=== PATIENT | female | born 1995 | race Hispanic/Latino ===

== ENCOUNTER 2017-05-25 09:24 | Inpatient (IN) | payer OTHER, SELFPAY ==
[2017-05-25] MEDS ORDERED: Ondansetron HCl/PF 4 MG/2 ML Vial ONE (10:21)
[2017-05-25] MEDS ORDERED: Pantoprazole 40 MG VIAL ONE (10:21)
[2017-05-25 10:54] LABS: #Basophils 0.1 thou/uL (0.0-0.2); #Lymphocytes 1.3 thou/uL (1.20-3.40); #Monocytes 0.4 thou/uL (0.11-0.59); #Neutrophils 13.3 thou/uL (1.40-6.50); %Basophils 0.3 % (0.0-1.0); %Eosinophils 0.2 % (0.0-10.0); %Lymphocytes 8.7 % (21.0-51.0); %Monocytes 2.5 % (0.0-10.0); %Neutrophils 88.3 % (42.0-75.0); Hemoglobin 12.5 g/dL (12.0-16.0); Mean Corpuscular HGB CONC 31.8 g/dL (32.0-36.0); Mean Corpuscular Volume 72.2 fl (81.0-99.0); Mean Platelet Volume 9.5 fL (7.4-10.4); Platelet Count 407 thou/uL (130-400); RBC Distribution Width 13.8 % (11.5-14.5); Red Blood Cell (RBC) Count 5.45 mill/uL (4.20-5.40)
[2017-05-25 11:01] LABS: ALT (SGPT) 205 U/L (8-55); AST (SGOT) 236 U/L (5-34); Albumin 4.4 g/dL (3.5-5.0); Alkaline Phosphatase 243 U/L (40-150); Anion Gap 14 mmol/L (10-20); BUN (Urea Nitrogen) 6 mg/dL (7.0-18.7); Bilirubin, Total 1.3 mg/dL (0.2-1.2); Calc. Creatinine Clearance 0 mL/min (70-130); Calcium 9.2 mg/dL (7.8-10.44); Carbon Dioxide 22 mmol/L (22-29); Chloride 103 mmol/L (98-107); Estimated GFR-MDRD Greater than 90; Glucose 133 mg/dL (70-105); Lipase Greater than 1000 U/L (8-78); Potassium 4.4 mmol/L (3.5-5.1); Protein, Total 8.4 g/dL (6.0-8.3); Sodium 135 mmol/L (136-145)
[2017-05-25 11:10] LABS: Hypochromia SLIGHT = 6-15 cells (100X) (0-5/hpf); MDiff Complete? YES; Microcytosis SLIGHT = 6-15 cells (100X) (0-5/hpf); Ovalocytes SLIGHT = 2-5 cells (100X) (0-1/hpf); PLT Morphology Comment Appears Increased; Polychromasia SLIGHT = 2-3 cells (100X) (0-2/hpf); Tear Drops SLIGHT = 2-5 cells (100X) (0-1/hpf)
[2017-05-25] MEDS ORDERED: Metoclopramide HCl 10 MG/2 ML VIAL ONE (11:14)
--- NOTE | 2017-05-25 11:19 | RAD ---
CHEST 1 VIEW ABDOMEN 2 VIEWS: HISTORY: Constipation. Abdominal pain. FINDINGS: Cardiac silhouette and pulmonary vasculature are unremarkable. Mediastinum is midline. There is no lobar consolidation or evidence of free subdiaphragmatic gas. Gas and stool are apparent throughout the colon and rectum. There are no differential air fluid leve ls or evidence of free subdiaphragmatic gas. Only a moderate amount of stool is apparent. IMPRESSION: No significant abnormalities are demonstrated. POS: H
[2017-05-25] MEDS ORDERED: Promethazine HCl 25 MG/ML VIAL ONE (12:36)
--- NOTE | 2017-05-25 12:51 | ULT ---
SONOGRAM RIGHT UPPER QUADRANT: Date: 05/25/17 HISTORY: Right upper quadrant pain. FINDINGS: Multiple small, shadowing stones are present within the gallbladder lumen. Gallbladder is distended u p to 11.3 cm. Patient was reportedly not tender over the gallbladder fossa at the time of the exam. N o gallbladder wall thickening or pericholecystic fluid. Liver has a normal appearance. IMPRESSION: Cholelithiasis. Gallbladder is abnormally distended, although no other findings of acute cholecystiti s are apparent. Clinical correlation regarding other clinical signs and symptoms of acute cholecystit is is required. POS: MADHURI
[2017-05-25] MEDS ORDERED: Ondansetron HCl/PF 4 MG/2 ML Vial IVP PRN ×2 (15:35→15:38)
[2017-05-25] MEDS ORDERED: Ondansetron ODT 4 MG TAB SL PRN (15:35)
[2017-05-25 15:36] VITALS: BMI 40.3
[2017-05-25] MEDS ORDERED: Morphine 4 MG/ML Carpuject SLOW IVP PRN (15:38)
[2017-05-25] MEDS ORDERED: Sodium Chloride 0.9% 1,000 ML IV SCH ×3 (15:45→19:45)
[2017-05-25] MEDS ORDERED: Dextrose 5 %-0.45 % NaCl 1,000 ML IV SCH (15:45)
[2017-05-25] MEDS ORDERED: Morphine 5 mg/5 ml in 0.9% NaCl/PF SYRINGE SLOW IVP PRN (16:03)
[2017-05-25] MEDS ORDERED: Morphine 5 mg/5 ml in 0.9% NaCl/PF SYRINGE IVP PRN (16:03)
[2017-05-25] MEDS ORDERED: FLU VACC QS2017-18 36 mo. & older 0.5 ML SYRINGE IM ONE (18:00)
--- NOTE | 2017-05-25 19:28 | HP ---
CHIEF COMPLAINT: Gallstone pancreatitis. HISTORY OF PRESENT ILLNESS: Ms. Albright is a 21-year-old woman who is 2 months . She deve loped constipation 3 days ago, which has been an issue for her off and on in the past. Yesterday, seb valdes developed abdominal pain, which radiates across her upper abdomen into her back. She had severe na usea and this morning began throwing up, so came into the emergency room. She rates her pain as 7/10 and states that it is constant since its onset yesterday. It is somewhat relieved by a heating pad and nothing else she has taken for it has helped. She denies any hematemesis or coffee ground emesis . She had a small bowel movement yesterday, which was otherwise normal. PAST MEDICAL HISTORY: None. PAST SURGICAL HISTORY: Tonsillectomy. FAMILY HISTORY: Diabetes in her mother. SOCIAL HISTORY: She does not smoke, drink or use illicit drugs. She has a 2-month-old child who is bottle fed. REVIEW OF SYSTEMS: Ten-system review of systems is negative except per HPI. She has not had any fev ers or chills. PHYSICAL EXAMINATION: VITAL SIGNS: Temperature 98.6, heart rate 86, respirations 18, blood pressure 142/91 and 99% saturat ed on room air. GENERAL: Reveals a pleasant young woman in no acute distress. She is somewhat groggy after receivin g Phenergan. She is not flushed or toxic in appearance. She is not jaundiced or icteric. HEENT: Unremarkable. NECK: Supple, without lymphadenopathy or thyroid nodules. HEART: Regular in its rate and rhythm without murmurs, rubs or gallops. LUNGS: Clear to auscultation bilaterally. ABDOMEN: Tender in the epigastric area and both upper quadrants. Mildly tender in the lower abdomen . No rigidity, rebound or guarding. No palpable masses or hernias. EXTREMITIES: Warm and well perfused without edema. NEUROLOGIC: No focal deficits. PSYCHIATRIC: Groggy, but cooperative and responsive. IMAGING DATA: Ultrasound of the abdomen showed gallstones without pericholecystic fluid or wall thic kening. Her bile duct was just over 6 mm in diameter. LABORATORY DATA: Lipase is greater than 1000. Bilirubin is mildly elevated at 1.3. AST and ALT are 236 and 205. Electrolytes are normal. White count is mildly elevated at 15, platelets are 407 and hematocrit is 39.4. ASSESSMENT: Gallstone pancreatitis. PLAN: We will admit the patient for hydration, pain control and bowel rest. If her symptoms improve and her labs normalize, then we will plan on laparoscopic cholecystectomy with intraoperative cholan giogram to evaluate for retained stones. If her pancreatitis worsens or her LFTs did not decline, th en ERCP will be considered. I have alerted Dr. Mcintyre of Gastroenterology to her admission and asked him to see her for possible ERCP if needed. I did discuss the procedure of laparoscopic cholecystec césar with cholangiogram with the patient and her mother inherent risks include, but are not limited t o bleeding, infection, risks of anesthesia, damage to nearby structures including bowel, liver and bi le duct, need for open operation and need for other surgeries. The patient and her mother understand and wished to proceed. They understand that preoperative ERCP may be necessary depending on the cli nical course. All of their questions were answered.
[2017-05-25] MEDS ORDERED: Morphine 5 MG/ML SYRINGE IVP PRN (20:15)
[2017-05-25] MEDS: Morphine 5 MG/ML SYRINGE SLOW IVP PRN (20:41)
[2017-05-25] MEDS: Sodium Chloride 0.9% 1,000 ML IV SCH (20:45)
--- NOTE | 2017-05-26 03:51 | CON ---
DATE OF CONSULTATION: 05/25/2017 HISTORY OF PRESENT ILLNESS: Ms. Albright is a pleasant 21-year-old female who was admitted to [facility] with biliary pancreatitis. She in retrospect, noticed she has had several bouts over the past year , right upper quadrant pain after eating certain meals. For 3 days now, she has been having some abd ominal pain. She states this pain actually started at her back initially and she would stay on her l eft side, she feels better, but she still kept having pain. She thought maybe this is related to her menstrual cycles coming on. Once her menstrual cycles started, usually she will have a bowel moveme nt and her stomach will feel better, but this time it did not. She began to have some nausea and vom iting, and the pain initially got better, but then got worse today and she came to the emergency room . Here, she was found to have elevated liver enzymes and lipase over 1000. She has had no fever or chills. She feels a little bit better now, but actually in the past hour or so, she started having s ome upper abdominal pain a little bit again, nothing like that when she came in. She has had no feve r or chills. She has only voided once since being here. She feels like her mouth is very dry. On reviewing records, she is getting 150 mL an hour. She received 1 liter of fluid in the emergency room. She came in at 9 this morning. She denies any past history of pancreatitis. She denies any a lcohol abuse. She denies any medications. PAST MEDICAL HISTORY: None. PAST SURGICAL HISTORY: Tonsillectomy. SOCIAL HISTORY: She denies alcohol, drugs or tobacco. She does not smoke. She has two children. ALLERGIES: None known. MEDICATIONS: Morphine p.r.n., D5 half normal at 75 mL an hour, Zofran p.r.n., Protonix 40 mg daily. PHYSICAL EXAMINATION: VITAL SIGNS: Temperature is 98.5, pulse 87, blood pressure 127/73. HEENT: Mucous members are dry. LUNGS: Clear. CARDIOVASCULAR: Heart has a regular rate and rhythm, without clicks or murmurs. ABDOMEN: Soft. There is no rebound or guarding. There is mild tenderness to deep palpation. EXTREMITIES: No clubbing, cyanosis or edema. LABORATORY DATA: On admission, white count 15,000, hemoglobin 12.5, platelet count 407, 88% neutroph ils. Chemistry: Sodium 135, potassium 4.4, BUN 6, creatinine 0.7, glucose 133, bilirubin 1.3, AST a nd ALT are 236 and 205, alkaline phosphatase 243. Lipase is greater than 1000. IMAGING STUDIES: Ultrasound showed cholelithiasis with gallbladder distention. No other symptoms of acute cholecystitis were seen. ASSESSMENT: Biliary pancreatitis. There could be some early cholecystitis, but there are no signs o f cholangitis. RECOMMENDATIONS: She has been empirically started on some Levaquin in case she has early cholangitis with elevated white count and when I increased fluid to 250 mL an hour as she is mildly dry, at this point in time, she has only received about a liter and a half, so far today and she is only voided o nce. Agree with repeating labs in the morning. Depending on her course, she may be ready for cholec ystectomy tomorrow or she may need to wait another day or two. If liver enzymes are not improving, s he may need an ERCP. I prefer her to do this once her pancreatitis has resolved; however, if she has worsening pancreatitis or signs of cholangitis, we have to proceed with that emergently.
[2017-05-26 05:53] LABS: #Lymphocytes 2.3 thou/uL (1.20-3.40); #Monocytes 0.7 thou/uL (0.11-0.59); #Neutrophils 12.5 thou/uL (1.40-6.50); %Basophils 0.1 % (0.0-1.0); %Eosinophils 0.3 % (0.0-10.0); %Lymphocytes 14.8 % (21.0-51.0); %Monocytes 4.6 % (0.0-10.0); %Neutrophils 80.3 % (42.0-75.0); Hemoglobin 10.9 g/dL (12.0-16.0); Mean Corpuscular HGB CONC 32.6 g/dL (32.0-36.0); Mean Corpuscular Hemoglobin 23.2 pg (27.0-31.0); Mean Corpuscular Volume 71.3 fl (81.0-99.0); Mean Platelet Volume 8.1 fL (7.4-10.4); Platelet Count 331 thou/uL (130-400); RBC Distribution Width 13.3 % (11.5-14.5); Red Blood Cell (RBC) Count 4.68 mill/uL (4.20-5.40); White Blood Cell (WBC) Count 15.5 thou/uL (4.8-10.8)
[2017-05-26] MEDS: Sodium Chloride 0.9% 1,000 ML IV SCH ×4 (05:53→16:53)
[2017-05-26 06:22] LABS: ALT (SGPT) 113 U/L (8-55); AST (SGOT) 61 U/L (5-34); Albumin 3.6 g/dL (3.5-5.0); Alkaline Phosphatase 177 U/L (40-150); Anion Gap 9 mmol/L (10-20); BUN (Urea Nitrogen) 4 mg/dL (7.0-18.7); Bilirubin, Total 0.7 mg/dL (0.2-1.2); Calc. Creatinine Clearance 226 mL/min (70-130); Calcium 8.2 mg/dL (7.8-10.44); Carbon Dioxide 23 mmol/L (22-29); Chloride 108 mmol/L (98-107); Estimated GFR-MDRD Greater than 90; Globulin 2.7 g/dL (2.4-3.5); Glucose 92 mg/dL (70-105); Lipase 302 U/L (8-78); Potassium 3.1 mmol/L (3.5-5.1); Protein, Total 6.3 g/dL (6.0-8.3); Sodium 137 mmol/L (136-145)
[2017-05-26] MEDS ORDERED: Ondansetron HCl/PF 4 MG/2 ML Vial ONE (07:14)
[2017-05-26] MEDS ORDERED: Glycopyrrolate 0.2 MG/ML 5 ML SYRINGE ONE (07:14)
[2017-05-26] MEDS ORDERED: Lidocaine 1% PF 5 ML VIAL ONE (07:14)
[2017-05-26] MEDS ORDERED: Ketorolac Tromethamine 30 MG/ML VIAL ONE (07:14)
[2017-05-26] MEDS ORDERED: Propofol 200 MG/20 ML VIAL ONE (07:14)
[2017-05-26] MEDS ORDERED: PHENYLEPHRINE-NS 100 MCG/ML 10 ML SYRINGE ONE (07:14)
[2017-05-26] MEDS ORDERED: Dexamethasone 20 MG/5 ML VIAL ONE (07:14)
[2017-05-26] MEDS ORDERED: Potassium Chloride 40 MEQ in Premix Bag 1 BAG IVPB SCH (08:30)
[2017-05-26] MEDS: Pantoprazole 40 MG VIAL IVP SCH (09:17)
[2017-05-26] MEDS: Morphine 5 MG/ML SYRINGE SLOW IVP PRN (09:17)
[2017-05-26] MEDS ORDERED: CEFAZOLIN/Water 2 GM/20 ML SYRINGE SLOW IVP SCH (10:15)
--- NOTE | 2017-05-26 15:44 | PRG ---
DATE OF SERVICE: 05/26/2017 SUBJECTIVE: Ms. Albright feels much better this morning. She has no pain. OBJECTIVE: VITAL SIGNS: Temperature is 97.8, pulse 80, blood pressure 122/79. ABDOMEN: Soft and nontender. LABORATORY STUDIES: White count is still 15,000, hemoglobin 10.9, MCV is 71, platelet count is 330. Sodium 137, potassium 3.1, BUN and creatinine are 4 and 0.61, bilirubin is now 0.7, AST and ALT have come down to 61 and 113 with alkaline phosphatase 177 and lipase is 302. ASSESSMENT: 1. Gallstone pancreatitis, resolving. The patient feels much better. This is a mild course. 2. Cholelithiasis with abnormal LFTs, which are improving. She likely had choledocholithiasis as a cause for pancreatitis. At this time with dropping LFTs, I agree with General Surgery. PLAN: To take her to the OR to remove her gallbladder. IOC should be performed at that time. If th ere is any evidence of common duct stones that cannot be flushed out, I will be available for ERCP at the same time of the same procedure. The patient is aware of these issues, and if she needs an ERCP , we will go straight from the OR to ERCP. We discussed the risks, benefits, possible complications of the procedure last night, we reviewed them today. If she does not need that procedure, then we wi ll go ahead and sign off; at this time waiting for surgical findings.
[2017-05-26] MEDS ORDERED: Iothalamate Meglumine 60% 50 ML VIAL FS ONE (16:04)
[2017-05-26] MEDS ORDERED: Bupivacaine/Epinephrine 0.25% 30 ML VIAL ONE (16:04)
[2017-05-26] MEDS ORDERED: CEFAZOLIN/Water 2 GM/20 ML SYRINGE ONE (16:05)
[2017-05-26] MEDS ORDERED: Promethazine HCl 25 MG/ML VIAL ONE (16:18)
[2017-05-26] MEDS ORDERED: Fentanyl 250 MCG/5 ML VIAL ONE (16:18)
[2017-05-26] MEDS ORDERED: Midazolam HCl 2 mg/2 ml Vial ONE (16:18)
--- NOTE | 2017-05-26 17:43 | RAD ---
INTRAOPERATIVE CHOLANGIOGRAM 05/26/17 HISTORY: Cholelithiasis with distention of the gallbladder noted on gallbladder ultrasound on 05/25/17. FINDINGS: Two intraoperative fluoroscopic images from an intraoperative cholangiogram are submitted for interpr etation. Surgical instruments overlie the right upper quadrant. The cystic duct is cannulated. There is opacification of the common duct as well as portion of the pancreatic duct. No filling defect is s een within the common duct. there is free spill of contrast seen into the duodenum. Portion of the pa ncreatic duct is opacified and normal in appearance. Intrahepatic ducts are not imaged with this exam . IMPRESSION: Intraoperative cholangiogram demonstrating opacification of a normal caliber common duct with free sp ill of contrast into the duodenum. There is no filling defect seen to suggest a calculus within the c ommon duct. Correlation with intraoperative findings is recommended. POS: MADHURI
[2017-05-26] MEDS ORDERED: Ondansetron HCl/PF 4 MG/2 ML Vial IVP PRN (18:06)
[2017-05-26] MEDS ORDERED: Promethazine HCl 25 MG/ML VIAL SLOW IVP PRN (18:06)
[2017-05-26] MEDS ORDERED: Morphine Sulfate 2 MG/ML SYRINGE SLOW IVP PRN (18:06)
[2017-05-26] MEDS ORDERED: HYDROcodone/Acetaminophen 7.5/325 mg Tablet PO PRN ×2 (18:15→18:16)
[2017-05-26] MEDS ORDERED: Promethazine 25 MG TAB PO PRN ×2 (18:16→18:17)
[2017-05-27] MEDS: Sodium Chloride 0.9% 1,000 ML IV SCH ×2 (01:20→06:34)
[2017-05-27 06:05] LABS: ALT (SGPT) 77 U/L (8-55); AST (SGOT) 35 U/L (5-34); Albumin 3.6 g/dL (3.5-5.0); Alkaline Phosphatase 156 U/L (40-150); Anion Gap 10 mmol/L (10-20); BUN (Urea Nitrogen) 6 mg/dL (7.0-18.7); Bilirubin, Total 0.5 mg/dL (0.2-1.2); Calc. Creatinine Clearance 223 mL/min (70-130); Carbon Dioxide 24 mmol/L (22-29); Chloride 107 mmol/L (98-107); Estimated GFR-MDRD Greater than 90; Globulin 2.8 g/dL (2.4-3.5); Glucose 133 mg/dL (70-105); Lipase 29 U/L (8-78); Potassium 3.7 mmol/L (3.5-5.1); Protein, Total 6.4 g/dL (6.0-8.3); Sodium 137 mmol/L (136-145)
[2017-05-27 06:15] LABS: Band 6 % (5-11); Hemoglobin 10.1 g/dL (12.0-16.0); Lymphocytes 4 % (21-51); MDiff Complete? YES; Mean Corpuscular HGB CONC 31.5 g/dL (32.0-36.0); Mean Corpuscular Volume 73.2 fl (81.0-99.0); Mean Platelet Volume 8.2 fL (7.4-10.4); Monocytes 3 % (0-10); Neutrophil 87 % (42-75); Platelet Count 320 thou/uL (130-400); RBC Distribution Width 13.6 % (11.5-14.5); Red Blood Cell (RBC) Count 4.37 mill/uL (4.20-5.40); White Blood Cell (WBC) Count 18.4 thou/uL (4.8-10.8)
[2017-05-27] MEDS: Pantoprazole 40 MG VIAL IVP SCH (11:54)
[2017-05-27 13:32] VITALS: BP 118/62; TEMP 98
--- NOTE | 2017-05-27 14:57 | PRG ---
DATE OF SERVICE: 05/27/2017 SUBJECTIVE: Ms. Albright had cholecystectomy yesterday. She is feeling well. She has some pain at t he port sites from her laparoscopic surgery, but the pancreatitis pain has gone. Intraoperative chol angiogram was normal. PHYSICAL EXAMINATION: VITAL SIGNS: Temperature is 98, pulse 68, blood pressure 116/58. HEART: Has regular rate and rhythm. LUNGS: Clear. ABDOMEN: Slightly protuberant. She has some mild tenderness. Trocar sites look well healed. LABORATORY DATA: White count 18.4, hemoglobin 10.1, platelet count is 320. Sodium 137, potassium 3. 7, lipase is 29, BUN and creatinine are 10 and 0.62. Bilirubin is 0.5, AST and ALT are 35 and 77, an d alkaline phosphatase was 156. ASSESSMENT: 1. Significant leukocytosis of unclear etiology, prior reactive related to her pancreatitis. Operat jose antonio note is not yet out yet. 2. Pancreatitis, resolved. 3. No choledocholithiasis. Good advancing diet as tolerated. Plans regarding discharge per General Surgery.
== END 2017-05-27 13:00 | disposition home or self-care (01) | DRG 417 ==
LOC: ERS 09:24 → 3SE 12:38
PROVIDERS: ADMIT Surgery; ATTEND Surgery
PROC: 0FT44ZZ Resection of Gallbladder, Percutaneous Endoscopic Approach (ICD-10-PCS; principal; 2017-05-26)
PROC: BF031ZZ Plain Radiography of Gallbladder and Bile Ducts using Low Osmolar Contrast (ICD-10-PCS; 2017-05-26)
DX: K80.70 Calculus of gallbladder and bile duct without cholecystitis without obstruction (principal); K85.10 Biliary acute pancreatitis without necrosis or infection
CPT/HCPCS: 36415; 47532; 74022; 76705; 80053; 83690; 85007; 85025; 85027; 88304; 96361; 96374; 96375; J2270; C9113; J1100; J1610; J1885; J2001; J2250; J2405; J2550; J2704; J2765; J3010; J3480; Q9961

== ENCOUNTER 2018-04-04 09:31 | Emergency (ER) | payer OTHER, SELFPAY | END 2018-04-04 10:47 | disposition home or self-care (01) | LOC: SCSER 09:31 | DX: J02.0 Streptococcal pharyngitis (principal) | CPT/HCPCS: 87430; 99283 ==